=== PATIENT | male | born 1935 | race Two or more races ===

== ENCOUNTER 2018-05-05 09:43 | Emergency (ER) | payer OTHER ==
[~2018-05-05] VITALS: Ht 172.7 cm; Wt 95.3 kg
[2018-05-05] MEDS ORDERED: SYNTHROID200 MCG (09:57)
[2018-05-05] MEDS ORDERED: ATORVASTATIN CA20 MG (09:57)
[2018-05-05] MEDS ORDERED: LOSARTAN POTAS100 MG (09:57)
[2018-05-05] MEDS ORDERED: AFEDITAB CR30 MG (09:57)
[2018-05-05] MEDS ORDERED: TAMS0.4C (09:58)
[2018-05-05] MEDS ORDERED: ASPIR 8181 MG (09:58)
[2018-05-05] MEDS ORDERED: RESTORIL15 MG (09:58)
[2018-05-05] MEDS ORDERED: CENTRUM MEN'S1 EACH (09:59)
== END 2018-05-05 11:11 | disposition home or self-care (01) ==
LOC: ER 09:43
DX: G57.01 Lesion of sciatic nerve, right lower limb (principal); M62.838 Other muscle spasm

== ENCOUNTER → 2018-09-06 | Emergency (ER) | payer OTHER ==
[~2018-09-06] VITALS: Ht 172.7 cm; Wt 90.7 kg
[~2018-09-06] MED LIST: AFEDITAB CR30 MG; ASPIR 8181 MG; ATORVASTATIN CA20 MG; CENTRUM MEN'S1 EACH; LOSARTAN POTAS100 MG; RESTORIL15 MG; SYNTHROID200 MCG; TAMS0.4C; TRAMADOL HCL50 MG PO
== END | disposition home or self-care (01) ==
LOC: ER 10:22
DX: M54.31 Sciatica, right side (principal)

== ENCOUNTER 2018-10-05 08:29 | Emergency (ER) | payer OTHER ==
[~2018-10-05] VITALS: Ht 172.7 cm; Wt 88.0 kg
== END 2018-10-05 10:03 | disposition home or self-care (01) ==
LOC: ER 08:29
DX: M54.31 Sciatica, right side (principal)

== ENCOUNTER 2018-10-11 10:55 | Emergency (ER) | payer OTHER ==
[~2018-10-11] VITALS: Ht 172.7 cm; Wt 84.8 kg
[2018-10-11] MEDS ORDERED: NEURONTIN300 MG PO (12:58)
[2018-10-11] MEDS ORDERED: SKELAXIN800 MG PO (12:58)
[2018-10-11] MEDS ORDERED: PERCOCET 5-3251 EACH PO (12:58)
[2018-10-11] MEDS ORDERED: CELEBREX200MG PO (12:58)
[2018-10-11] MEDS ORDERED: MEDROLPACK PO (12:58)
== END 2018-10-11 14:46 | disposition home or self-care (01) ==
LOC: ER 10:55
DX: M54.32 Sciatica, left side (principal); M54.31 Sciatica, right side

== ENCOUNTER 2018-11-14 09:49 | Emergency (ER) | payer OTHER ==
[~2018-11-14] VITALS: Ht 172.7 cm; Wt 69.9 kg
[~2018-11-14 09:49] MED LIST changes: +CELEBREX200MG PO; +MEDROLPACK PO; +NEURONTIN300 MG PO; +PERCOCET 5-3251 EACH PO; +SKELAXIN800 MG PO
== END 2018-11-14 15:00 | disposition home or self-care (01) ==
LOC: ER 09:49
DX: M54.5 Low back pain (principal)

== ENCOUNTER 2018-11-27 09:58 | Outpatient (CLI) | payer OTHER | END 2018-11-27 10:03 | disposition home or self-care (01) | LOC: RAD 09:58 | DX: M51.36 Other intervertebral disc degeneration, lumbar region (principal); M51.37 Other intervertebral disc degeneration, lumbosacral region ==

== ENCOUNTER 2018-12-05 07:42 | Outpatient (CLI) | payer OTHER | END 2018-12-05 07:48 | disposition home or self-care (01) | LOC: MRI 07:42 | DX: M51.36 Other intervertebral disc degeneration, lumbar region (principal); M51.37 Other intervertebral disc degeneration, lumbosacral region | CPT/HCPCS: 72148 ==

== ENCOUNTER 2018-12-09 07:26 | Outpatient (CLI) | payer OTHER | END 2018-12-09 08:00 | disposition home or self-care (01) | LOC: NUCLEAR 07:26 | DX: I73.9 Peripheral vascular disease, unspecified (principal); I87.2 Venous insufficiency (chronic) (peripheral) ==

== ENCOUNTER → 2018-12-10 | Outpatient (CLI) | payer OTHER | END | disposition home or self-care (01) | LOC: NUCLEAR 07:47 | DX: I73.9 Peripheral vascular disease, unspecified (principal) ==

== ENCOUNTER → 2018-12-17 | Outpatient (CLI) | payer OTHER | END | disposition home or self-care (01) | LOC: NUCLEAR 12-16 11:00 | DX: M85.80 Other specified disorders of bone density and structure, unspecified site (principal); M81.0 Age-related osteoporosis without current pathological fracture ==

== ENCOUNTER → 2019-01-22 | Outpatient (CLI) | payer OTHER ==
[~2019-01-22] MED LIST changes: +GABAPENTIN600 MG; +TAMS0.4C PO
== END | disposition home or self-care (01) ==
LOC: LAB 06:00 → ADM 08:45 → CIR.AMB 01-31 07:00 → EDSTATUS 01-31 08:45
DX: M48.061 Spinal stenosis, lumbar region without neurogenic claudication (principal); M51.17 Intervertebral disc disorders with radiculopathy, lumbosacral region; M47.897 Other spondylosis, lumbosacral region; M51.36 Other intervertebral disc degeneration, lumbar region; M85.80 Other specified disorders of bone density and structure, unspecified site; D68.8 Other specified coagulation defects; Z01.810 Encounter for preprocedural cardiovascular examination

== ENCOUNTER 2019-02-23 18:06 | Emergency (ER) | payer OTHER ==
[~2019-02-23] VITALS: Ht 177.8 cm; Wt 83.9 kg
[~2019-02-23 18:06] MED LIST changes: -GABAPENTIN600 MG
[2019-02-23] MEDS ORDERED: GABAPENTIN600 MG (18:30)
== END 2019-02-23 20:04 | disposition home or self-care (01) ==
LOC: ER 18:06
DX: M54.2 Cervicalgia (principal); M62.838 Other muscle spasm

== ENCOUNTER 2019-02-25 09:02 | Outpatient (CLI) | payer OTHER ==
[~2019-02-25 09:02] MED LIST changes: +GABAPENTIN600 MG
== END 2019-02-25 09:12 | disposition home or self-care (01) ==
LOC: MRI 09:02
DX: M54.41 Lumbago with sciatica, right side (principal); M47.26 Other spondylosis with radiculopathy, lumbar region; M51.36 Other intervertebral disc degeneration, lumbar region; M43.16 Spondylolisthesis, lumbar region; R26.2 Difficulty in walking, not elsewhere classified; M47.892 Other spondylosis, cervical region; M85.80 Other specified disorders of bone density and structure, unspecified site
CPT/HCPCS: 72141

== ENCOUNTER 2020-07-15 09:14 | Emergency (ER) | payer OTHER ==
[~2020-07-15] VITALS: Ht 172.7 cm; Wt 95.3 kg
[2020-07-15] MEDS ORDERED: PROTONIX20 MG PO (13:38)
[2020-07-15] MEDS ORDERED: MEDROLPACK PO (13:38)
== END 2020-07-15 13:43 | disposition home or self-care (01) ==
LOC: ER 09:14
DX: M10.032 Idiopathic gout, left wrist (principal); M25.532 Pain in left wrist; I10 Essential (primary) hypertension; Z03.818 Encounter for observation for suspected exposure to other biological agents ruled out

== ENCOUNTER 2021-01-29 18:37 | Emergency (ER) | payer OTHER ==
[~2021-01-29] VITALS: Ht 172.7 cm; Wt 95.3 kg
[~2021-01-29 18:37] MED LIST changes: +PROTONIX20 MG PO
[2021-01-29] MEDS ORDERED: TAMSULOSIN HCL0.4 MG (18:52)
== END 2021-01-29 22:07 | disposition home or self-care (01) ==
LOC: ER 18:37
DX: L03.116 Cellulitis of left lower limb (principal); M10.072 Idiopathic gout, left ankle and foot

== ENCOUNTER 2021-02-13 15:32 | Emergency (ER) | payer OTHER ==
[~2021-02-13] VITALS: Ht 172.7 cm; Wt 95.3 kg
[~2021-02-13 15:32] MED LIST changes: +TAMSULOSIN HCL0.4 MG
[2021-02-13] MEDS ORDERED: CELEBREX100 MG PO (19:40)
[2021-02-13] MEDS ORDERED: INTESTINEX680 M1 PO (19:40)
[2021-02-13] MEDS ORDERED: BACTRIM DS TAB1 EACH PO (19:40)
== END 2021-02-13 19:53 | disposition home or self-care (01) ==
LOC: ER 15:32
DX: L03.116 Cellulitis of left lower limb (principal)

== ENCOUNTER 2021-12-12 10:34 | Emergency (ER) | payer OTHER ==
[~2021-12-12] VITALS: Ht 172.7 cm; Wt 97.5 kg
[~2021-12-12 10:34] MED LIST changes: +BACTRIM DS TAB1 EACH PO; +CELEBREX100 MG PO; +INTESTINEX680 M1 PO
[2021-12-12] MEDS ORDERED: NORVASC2.5 MG PO (10:59)
[2021-12-12] MEDS ORDERED: VITAMIN D350 MC3 PO (10:59)
[2021-12-12] MEDS ORDERED: IRBESARTAN150 MG PO (11:00)
== END 2021-12-12 15:11 | disposition home or self-care (01) ==
LOC: ER 10:34
DX: M79.642 Pain in left hand (principal)

== ENCOUNTER 2022-03-19 08:01 | Emergency (ER) | payer OTHER ==
[~2022-03-19] VITALS: Ht 172.7 cm; Wt 99.8 kg
[~2022-03-19 08:01] MED LIST changes: +IRBESARTAN150 MG PO; +NORVASC2.5 MG PO; +VITAMIN D350 MC3 PO
== END 2022-03-19 10:01 | disposition home or self-care (01) ==
LOC: ER 08:01
DX: M10.9 Gout, unspecified (principal); I10 Essential (primary) hypertension

== ENCOUNTER 2022-05-24 07:44 | Emergency (ER) | payer OTHER ==
[~2022-05-24] VITALS: Ht 172.7 cm; Wt 99.8 kg
[2022-05-24] MEDS ORDERED: SYNTHROID200 MCG PO (11:45)
[2022-05-24] MEDS ORDERED: TAMS0.4C PO (11:45)
== END 2022-05-24 12:04 | disposition home or self-care (01) ==
LOC: ER 07:44
DX: M54.50 Low back pain, unspecified (principal); I10 Essential (primary) hypertension; E03.9 Hypothyroidism, unspecified

== ENCOUNTER 2022-09-14 12:52 | Emergency (ER) | payer OTHER ==
[~2022-09-14] VITALS: Ht 172.7 cm; Wt 99.8 kg
[~2022-09-14 12:52] MED LIST changes: +SYNTHROID200 MCG PO
[2022-09-14] MEDS ORDERED: VITAMIN D310 MC4 PO (13:24)
[2022-09-14] MEDS ORDERED: PEPCID AC20 MG PO (13:24)
== END 2022-09-14 18:11 | disposition home or self-care (01) ==
LOC: ER 12:52
DX: E86.0 Dehydration (principal); Z86.79 Personal history of other diseases of the circulatory system; M54.50 Low back pain, unspecified; M54.2 Cervicalgia; Z20.822 Contact with and (suspected) exposure to COVID-19

== ENCOUNTER 2022-12-27 09:28 | Emergency (ER) | payer OTHER ==
[~2022-12-27] VITALS: Ht 172.7 cm; Wt 104.3 kg
[~2022-12-27 09:28] MED LIST changes: +PEPCID AC20 MG PO; +VITAMIN D310 MC4 PO
[2022-12-27] MEDS ORDERED: ADULT LOW DOSE81 M1 (09:59)
[2022-12-27] MEDS ORDERED: DICLOFENAC POTA50 MG PO (10:00)
[2022-12-27] MEDS ORDERED: GABAPENTIN300 M2 PO (10:00)
[2022-12-27] MEDS ORDERED: ZITHROMAX TRI-500 MG PO (12:19)
== END 2022-12-27 12:53 | disposition home or self-care (01) ==
LOC: ER 09:28
DX: B34.9 Viral infection, unspecified (principal); S29.8XXA Other specified injuries of thorax, initial encounter; W18.39XA Other fall on same level, initial encounter; Y93.89 Activity, other specified; Y92.018 Other place in single-family (private) house as the place of occurrence of the external cause; I10 Essential (primary) hypertension; E03.9 Hypothyroidism, unspecified; Z20.822 Contact with and (suspected) exposure to COVID-19

== ENCOUNTER 2023-01-15 09:45 | Emergency (ER) | payer OTHER ==
[~2023-01-15] VITALS: Ht 172.7 cm; Wt 104.3 kg
[~2023-01-15 09:45] MED LIST changes: +ADULT LOW DOSE81 M1; +DICLOFENAC POTA50 MG PO; +GABAPENTIN300 M2 PO; +ZITHROMAX TRI-500 MG PO
== END 2023-01-15 10:59 | disposition home or self-care (01) ==
LOC: ER 09:45
DX: M79.661 Pain in right lower leg (principal)

== ENCOUNTER 2023-12-25 08:44 | Emergency (ER) | payer OTHER ==
[~2023-12-25] VITALS: Ht 172.7 cm; Wt 105.2 kg
[2023-12-25] MEDS ORDERED: KETOROLAC TROMETHAMINE 15 MG VIAL IM STA (11:39)
[2023-12-25] MEDS ORDERED: CELEBREX200MG PO (11:42)
== END 2023-12-25 11:45 | disposition home or self-care (01) ==
LOC: ER 08:45
DX: M19.031 Primary osteoarthritis, right wrist (principal); I10 Essential (primary) hypertension
CPT/HCPCS: 73130; 96372; 99283; J1885

== ENCOUNTER 2024-07-21 08:22 | Emergency (ER) | payer OTHER ==
[~2024-07-21] VITALS: Ht 172.7 cm; Wt 97.5 kg
[2024-07-21] MEDS ORDERED: KETOROLAC TROMETHAMINE 30 MG VIAL IM STA (09:06)
[2024-07-21] MEDS ORDERED: CEFTRIAXONE SODIUM 1,000 MG VIAL IM STA (09:06)
[2024-07-21 10:00] LABS: HEMATOCRIT 43.1 % (39.0-48.0); HEMOGLOBIN 14.4 g/dL (13-16.00); MEAN CELL VOLUME 92.1 fL (80.0-100.00); MEAN CORPUSCULAR HEMOGLOBIN 30.8 pg (27.00-32.0); MEAN CORPUSCULAR HGB CONC 33.5 g/dl (32.0-36.0); PLATELET COUNT 343 K/uL (150-450); RED BLOOD COUNT 4.69 M/uL (4.00-6.00); RED CELL DISTRIBUTION WIDTH 16.2 % (11.5-14.5)
== END 2024-07-21 10:23 | disposition home or self-care (01) ==
LOC: ER 08:24
PROVIDERS: General Practice
DX: M79.672 Pain in left foot (principal)
CPT/HCPCS: 36415; 96372; 99282; J0696; J1885

== ENCOUNTER 2024-08-03 11:59 | Emergency (ER) | payer OTHER ==
[~2024-08-03] VITALS: Ht 177.8 cm; Wt 86.2 kg
[2024-08-03 15:00] LABS: HEMATOCRIT 45.3 % (39.0-48.0); HEMOGLOBIN 15.6 g/dL (13-16.00); MEAN CELL VOLUME 91.9 fL (80.0-100.00); MEAN CORPUSCULAR HEMOGLOBIN 31.7 pg (27.00-32.0); MEAN CORPUSCULAR HGB CONC 34.5 g/dl (32.0-36.0); PLATELET COUNT 445 K/uL (150-450); RED BLOOD COUNT 4.93 M/uL (4.00-6.00)
[2024-08-03 15:31] LABS: ALBUMIN 3.8 gm/dL (3.4-5.0); BILIRUBIN TOTAL 1.89 mg/dL (0.3-1.2); CALCIUM 9.3 mg/dL (8.5-10.1); CREATININE SERUM 1.21 mg/dL (0.70-1.30); GFR 56.86; GLOBULINA 4.6 G/DL (2.4-3.5); POTASSIUM 4.25 mEq/L (3.5-5.1); TOTAL PROTEIN 8.4 gm/dL (6.4-8.2)
[2024-08-03] MEDS ORDERED: CEFTRIAXONE SODIUM 2,000 MG VIAL IV STA (15:37)
[2024-08-03] MEDS ORDERED: KETOROLAC TROMETHAMINE 30 MG VIAL IM STA (15:39)
[2024-08-03] MEDS ORDERED: CEFTRIAXONE SODIUM 1,000 MG VIAL IM STA (15:39)
== END 2024-08-03 15:52 | disposition home or self-care (01) ==
LOC: ER 12:01
PROVIDERS: General Practice
DX: M10.9 Gout, unspecified (principal); M79.672 Pain in left foot
CPT/HCPCS: 96365; 96372; 99282; J0696 ×2; J1885

== ENCOUNTER 2024-09-23 09:46 | Emergency (ER) | payer OTHER ==
[~2024-09-23] VITALS: Ht 172.7 cm; Wt 97.5 kg
[2024-09-23 10:42] VITALS: BP 113/71; O2SAT 95
[2024-09-23] MEDS ORDERED: KETOROLAC TROMETHAMINE 60 MG VIAL IM ONE ×2 (14:30→14:36)
[2024-09-23 16:04] LABS: HEMATOCRIT 46.8 % (39.0-48.0); HEMOGLOBIN 15.6 g/dL (13-16.00); MEAN CELL VOLUME 93.2 fL (80.0-100.00); MEAN CORPUSCULAR HGB CONC 33.3 g/dl (32.0-36.0); PLATELET COUNT 423 K/uL (150-450); RED BLOOD COUNT 5.02 M/uL (4.00-6.00); RED CELL DISTRIBUTION WIDTH 16.7 % (11.5-14.5)
[2024-09-23 16:29] LABS: BILIRUBIN TOTAL 1.84 mg/dL (0.3-1.2); CALCIUM 9.1 mg/dL (8.5-10.1); CREATININE SERUM 1.16 mg/dL (0.70-1.30); GFR 59.56; GLOBULINA 4.7 G/DL (2.4-3.5); POTASSIUM 4.05 mEq/L (3.5-5.1); TOTAL PROTEIN 8.7 gm/dL (6.4-8.2)
[2024-09-23] MEDS ORDERED: INDOMETHACIN50 MG PO (16:58)
== END 2024-09-23 17:10 ==
LOC: ER 09:48
PROVIDERS: General Practice
DX: M10.9 Gout, unspecified (principal); M79.672 Pain in left foot; I10 Essential (primary) hypertension; E03.8 Other specified hypothyroidism
CPT/HCPCS: 36415; 73630; 96372; 99283; J1885